=== PATIENT | male | born 1960 ===

== ENCOUNTER 2023-10-06 07:08 | Day surgery (SDC) | payer OTHER ==
[2023-09-28 12:08] LABS: HEMATOCRIT 40.8 % (39.0-48.0); HEMOGLOBIN 14.1 g/dL (13-16.00); MEAN CELL VOLUME 99.4 fL (80.0-100.00); MEAN CORPUSCULAR HEMOGLOBIN 34.3 pg (27.00-32.0); MEAN CORPUSCULAR HGB CONC 34.5 g/dl (32.0-36.0); PLATELET COUNT 204 K/uL (150-450)
[2023-09-28 12:24] LABS: PH,URINE 6.5 (5.0-8.0); URINE APPEARANCE Clear; URINE BILIRRUBIN Negative (NEGATIVE); URINE BLOOD Negative; URINE COLOR Yellow; URINE GLUCOSE Negative (NEGATIVE); URINE LEUKOCYTE Negative; URINE NITRATE Negative; URINE PROTEIN Negative (NEGATIVE); URINE UROBILINOGEN 0.2 E.U./dl
[2023-09-28 12:30] LABS: URINE RBC 3.3 uL (0.0-20.8)
[2023-09-28 12:34] LABS: CALCIUM 8.8 mg/dL (8.5-10.1); CREATININE SERUM 0.97 mg/dL (0.70-1.30); GFR 78.17; INR 0.98; PARTIAL THROMBOPLASTIN TIME 27.2 SECONDS (22.0-34.0); POTASSIUM 3.61 mEq/L (3.5-5.1); PROTHROMBIN TIME 10.3 SECONDS (9.0-11.5)
[2023-09-28 12:36] LABS: URINE BACTERIA 3.7 uL (0.0-1933); URINE EPITHELIAL CELLS 0.6 uL (0.0-38.8); URINE WBC 1.6 uL (0.0-23.2)
[~2023-10-06 07:08] MED LIST: ATRIPLA TABLET1 EACH; CRESTOR20 MG; TAMS0.4C
[2023-10-06] MEDS ORDERED: CEFTRIAXONE SODIUM 2,000 MG VIAL ONE (08:43)
[2023-10-06] MEDS ORDERED: ENOXAPARIN SODIUM 40 MG/0.4 ML SYRINGE SUBCUTANEO ONE ×2 (08:44→10:30)
[2023-10-06] MEDS ORDERED: BUPIVACAINE HCL/PF 0.5% 30ML ML ONE (08:57)
[2023-10-06] MEDS ORDERED: METRONIDAZOLE/SODIUM CHLORIDE 500 MG/100 ML PIGGYBACK IV ONE ×2 (10:00)
[2023-10-06] MEDS ORDERED: CEFTRIAXONE SODIUM 2,000 MG VIAL IV ONE (10:00)
[2023-10-06] MEDS ORDERED: BUPIVACAINE HCL/PF 0.25% 30ML VIAL InF ONE (10:00)
[2023-10-06] MEDS ORDERED: NEURONTIN300 MG PO (10:44)
[2023-10-06] MEDS ORDERED: PERCOCET 5-3251 EACH PO (10:44)
[2023-10-06] MEDS ORDERED: COLACE100 MG PO (10:46)
[2023-10-06] MEDS ORDERED: CELEBREX200MG PO (10:47)
== END 2023-10-06 14:55 | disposition home or self-care (01) ==
LOC: CIR.AMB 07:08
PROVIDERS: ATTEND Surgery
DX: K40.90 Unilateral inguinal hernia, without obstruction or gangrene, not specified as recurrent (principal); Z20.822 Contact with and (suspected) exposure to COVID-19; E78.5 Hyperlipidemia, unspecified; B20 Human immunodeficiency virus [HIV] disease
CPT/HCPCS: 49650; C1781

== ENCOUNTER 2023-10-12 13:32 | Outpatient (CLI) | payer OTHER ==
[~2023-10-12 13:32] MED LIST changes: +CELEBREX200MG PO; +COLACE100 MG PO; +NEURONTIN300 MG PO; +PERCOCET 5-3251 EACH PO
== END 2023-10-12 13:40 | disposition home or self-care (01) ==
LOC: SONOGRAMA 13:32
PROVIDERS: ATTEND Internal Medicine Pulmonary Disease
DX: R91.1 Solitary pulmonary nodule (principal); Z87.891 Personal history of nicotine dependence; E04.1 Nontoxic single thyroid nodule; Z21 Asymptomatic human immunodeficiency virus [HIV] infection status

== ENCOUNTER 2023-10-28 16:19 | Outpatient (CLI) | payer OTHER | END 2023-10-28 16:21 | disposition home or self-care (01) | LOC: SONOGRAMA 16:19 | PROVIDERS: ATTEND Pathology Anatomic Pathology & Clinical Pathology | DX: D34 Benign neoplasm of thyroid gland (principal); E07.89 Other specified disorders of thyroid; E04.1 Nontoxic single thyroid nodule ==